=== PATIENT | male | born 1930 | race Caucasian/White ===

== ENCOUNTER 2018-08-19 10:58 | Emergency (ER) | payer MEDICARE ==
[2018-08-19] MEDS ORDERED: Albuterol/Ipratropium 3.0-0.5 MG/3 ML Neb Soln NEB ONE (14:19)
--- NOTE | 2018-08-19 14:22 | EDM.PDOC ---
ED HPI GENERAL MEDICAL PROBLEM - General Chief Complaint: General Stated Complaint: WEAK, ILL FOR 4 WEEKS Time Seen by Provider: 08/19/18 13:11 Source of Information: Reports: Patient, Family, Old Records, RN Notes Reviewed History Limitations: Reports: No Limitations - History of Present Illness INITIAL COMMENTS - FREE TEXT/NARRATIVE: 88-year-old gentleman presents emergency department today complaint of cough, he has been evaluated in the clinic 2 times for this persistent cough that has been ongoing for 1 month now. The reason he presents to the emergency department he states that he is sick of the cough and wants answers. He has been treated with 2 rounds of antibiotics azithromycin and doxycycline as well as a short course of steroids. He has no history of lung disease no tobacco exposure does have a past medical history of dyslipidemia and hypertension. He does produce sputum initially greenish yellow that now has resolved the cough is more dry, he has not had any weight gain or edema initial chest x-ray by radiology shows pleural effusion however notes from clinic reveal left lower lobe pneumonia, he denies any fevers states he has become weak over the last month - Related Data Allergies Allergy/AdvReac Type Severity Reaction Status Date / Time atorvastatin calcium Allergy Muscle Verified 05/05/13 06:58 [From Lipitor] Aches rosuvastatin calcium Allergy Muscle Verified 05/05/13 06:58 [From Crestor] Aches Home Meds: Home Meds Aspirin [Aspirin EC] 81 mg PO DAILY 05/04/13 [History] Glucosamine Sulf/Chondroitin A [Glucosamine-Chondroitin Cap] 1 each PO DAILY [History] Lisinopril 10 mg PO DAILY 05/04/13 [History] Metoprolol Tartrate [Lopressor] 50 mg PO DAILY 05/04/13 [History] Multivitamin [Multi Vitamin Daily] 1 each PO DAILY 05/04/13 [History] [place]-3 Fatty Acids [[place]-3] 1,000 mg PO DAILY 05/04/13 [History] Pravastatin [Pravachol] 20 mg PO DAILY 05/04/13 [History] Vit C/You & Celery Ex/Grp E [Tart You] 1 dose PO DAILY 05/04/13 [History] Codeine/guaiFENesin [guaiFENesin-Codeine Syrup] 10 ml PO TID PRN #180 cup [Rx] Past Medical History HEENT History: Reports: Impaired Vision Cardiovascular History: Reports: High Cholesterol, Hypertension - Past Surgical History Cardiovascular Surgical History: Reports: Other (See Below) Other Cardiovascular Surgeries/Procedures: Triple bypass 2010 GI Surgical History: Reports: Colonoscopy Social & Family History - Tobacco Use Smoking Status *Q: Never Smoker Second Hand Smoke Exposure: No - Caffeine Use Caffeine Use: Reports: Soda Other Caffeine Use: one can per day of soda - Recreational Drug Use Recreational Drug Use: No ED ROS GENERAL - Review of Systems Review Of Systems: See Below Constitutional: Reports: Weakness. Denies: Fever, Chills HEENT: Reports: No Symptoms Respiratory: Reports: Shortness of Breath, Cough (Sleeps on a chair at night because it reduces his cough) Cardiovascular: Reports: Dyspnea on Exertion GI/Abdominal: Reports: No Symptoms : Reports: No Symptoms Musculoskeletal: Reports: No Symptoms Skin: Reports: No Symptoms Neurological: Reports: No Symptoms ED EXAM, GENERAL - Physical Exam Exam: See Below Free Text/Narrative:: General: Male, not in any distress, alert and oriented x3 HEENT: head is atraumatic normocephalic, eyes pupils equal round reactive to light, sclera clear no conjunctivitis appreciated. Ears tympanic membranes clear and marie landmarks and light reflex are present bilaterally canals are clear. Nose no septal deviation, nares are clear, no blood present. Mouth mucosa is moist and pink no erythema or exudate noted in soft palate, tongue is midline uvula is midline, dentition is intact. Neck: Supple no thyromegaly no tracheal deviation. Nodes: Cervical nodes subclavicular nodes nontender no palpable lymphadenopathy noted. Lungs: Breath sounds are distant unappreciated any adventitious noises CV: Regular rate and rhythm S1 and S2 appreciated no murmurs rubs or gallops noted. Abdomen: Soft, nontender, no palpable masses or organomegaly appreciated, no distention no guarding bowel sounds are present, . Neuro: GCS 15 Skin: Warm and dry, intact Extremities: No lower extremity edema appreciated, Course - Vital Signs Last Recorded V/S: Last Vital Signs Temp 98.9 F 08/19/18 15:54 Pulse 100 08/19/18 15:54 Resp 16 08/19/18 15:54 BP 129/67 08/19/18 15:54 Pulse Ox 95 08/19/18 15:54 - Orders/Labs/Meds Orders: Active Orders 24 hr Category Date Time Status Peripheral IV Care [RC] . DIRECTED Care 08/19/18 15:08 Active RT Aerosol Therapy [RC] ASDIRECTED Care 08/19/18 14:19 Active Iopamidol [Isovue-370 (76%)] Med 08/19/18 15:15 Active 100 ml IV . DIRECTED Sodium Chloride 0.9% [Normal Saline] 1,000 ml Med 08/19/18 15:15 Active IV ASDIRECTED Sodium Chloride 0.9% [Saline Flush] Med 08/19/18 15:07 Active 10 ml FLUSH ASDIRECTED PRN Peripheral IV Insertion Adult [OM.PC] Urgent Oth 08/19/18 15:07 Ordered Medication Orders Sodium Chloride (Normal Saline) 1,000 mls @ 500 mls/hr IV ASDIRECTED KATIUSKA Last Admin: 08/19/18 15:54 Dose: 500 mls/hr Iopamidol (Isovue-370 (76%)) 100 ml IV . DIRECTED [facility] Last Admin: 08/19/18 15:48 Dose: 100 ml Sodium Chloride (Saline Flush) 10 ml FLUSH ASDIRECTED PRN PRN Reason: Keep Vein Open Labs: Laboratory Tests 08/19/18 08/19/18 08/19/18 Range/Units 14:31 14:31 14:31 WBC 6.3 (4.5-11.0) K/uL RBC 4.60 (4.30-5.90) M/uL Hgb 15.0 (12.0-15.0) g/dL Hct 45.6 (40.0-54.0) % MCV 99 H (80-98) fL MCH 33 H (27-31) pg MCHC 33 (32-36) % Plt Count 55 L (150-400) K/uL Neut % (Auto) 74 H (36-66) % Lymph % (Auto) 16 L (24-44) % [place] % (Auto) 9 H (2-6) % Eos % (Auto) 1 L (2-4) % Baso % (Auto) 1 (0-1) % D-Dimer, Quantitative 1390 H (0.0-400.0) ng/mL Sodium 135 L (140-148) mmol/L Potassium 4.4 (3.6-5.2) mmol/L Chloride 99 L (100-108) mmol/L Carbon Dioxide 27 (21-32) mmol/L Anion Gap 13.4 (5.0-14.0) mmol/L BUN 24 H (7-18) mg/dL Creatinine 1.2 (0.8-1.3) mg/dL Est Cr Clr Drug Dosing 41.31 mL/min Estimated GFR (MDRD) 57 L (>60) Glucose 125 H (74-106) mg/dL Calcium 9.6 (8.5-10.1) mg/dL Total Bilirubin 0.6 (0.2-1.0) mg/dL AST 44 H D (15-37) U/L ALT 51 D (12-78) U/L Alkaline Phosphatase 61 (46-116) U/L Troponin I < 0.017 (0.000-0.056) ng/mL NT-Pro-B Natriuret Pep (5-450) pg/mL Total Protein 6.8 (6.4-8.2) g/dL Albumin 2.8 L (3.4-5.0) g/dL Globulin 4.0 H (2.3-3.5) g/dL Albumin/Globulin Ratio 0.7 L (1.2-2.2) 08/19/18 Range/Units 14:31 WBC (4.5-11.0) K/uL RBC (4.30-5.90) M/uL Hgb (12.0-15.0) g/dL Hct (40.0-54.0) % MCV (80-98) fL MCH (27-31) pg MCHC (32-36) % Plt Count (150-400) K/uL Neut % (Auto) (36-66) % Lymph % (Auto) (24-44) % [place] % (Auto) (2-6) % Eos % (Auto) (2-4) % Baso % (Auto) (0-1) % D-Dimer, Quantitative (0.0-400.0) ng/mL Sodium (140-148) mmol/L Potassium (3.6-5.2) mmol/L Chloride (100-108) mmol/L Carbon Dioxide (21-32) mmol/L Anion Gap (5.0-14.0) mmol/L BUN (7-18) mg/dL Creatinine (0.8-1.3) mg/dL Est Cr Clr Drug Dosing mL/min Estimated GFR (MDRD) (>60) Glucose (74-106) mg/dL Calcium (8.5-10.1) mg/dL Total Bilirubin (0.2-1.0) mg/dL AST (15-37) U/L ALT (12-78) U/L Alkaline Phosphatase (46-116) U/L Troponin I (0.000-0.056) ng/mL NT-Pro-B Natriuret Pep 1197 H (5-450) pg/mL Total Protein (6.4-8.2) g/dL Albumin (3.4-5.0) g/dL Globulin (2.3-3.5) g/dL Albumin/Globulin Ratio (1.2-2.2) Meds: Medications Generic Name Dose Route Start Last Admin Trade Name Freq PRN Reason Stop Dose Admin Sodium Chloride 1,000 mls @ 500 mls/hr 08/19/18 15:15 08/19/18 15:54 Normal Saline IV 500 mls/hr ASDIRECTED KATIUSKA Administration Iopamidol 100 ml 08/19/18 15:15 08/19/18 15:48 Isovue-370 (76%) IV 100 ml . DIRECTED KATIUSKA Administration Sodium Chloride 10 ml 08/19/18 15:07 Saline Flush FLUSH ASDIRECTED PRN Keep Vein Open Discontinued Medications Generic Name Dose Route Start Last Admin Trade Name Freq PRN Reason Stop Dose Admin Albuterol/Ipratropium 3 ml 08/19/18 14:19 08/19/18 14:30 Duoneb 3.0-0.5 Mg/3 Ml NEB 08/19/18 14:20 3 ml ONETIME ONE Administration Sodium Chloride 100 mls @ 3 mls/sec 08/19/18 15:11 08/19/18 15:48 Normal Saline IV 08/19/18 15:12 4 mls/sec ASDIRECTED ONE Administration Sodium Chloride 10 ml 08/19/18 15:11 08/19/18 15:47 Saline Flush FLUSH 10 ml . DIRECTED PRN Administration [id number] EXAM Departure - Departure Time of Disposition: 17:24 Disposition: Home, Self-Care 01 Condition: Fair Clinical Impression: Cough, Thrombocytopenia - Discharge Information Prescriptions: Codeine/guaiFENesin [guaiFENesin-Codeine Syrup] 10 ml PO TID PRN #180 cup PRN Reason: Cough Instructions: Cough, Adult, [id number] Referrals: Justin Baker MD [Primary Care Provider] - Forms: ED Department Discharge Additional Instructions: Use a Robitussin-AC as needed help suppress cough, keep your follow-up appointment with her primary care provider in medications have been faxed to [facility] - My Orders Last 24 Hours: My Active Orders 08/19/18 14:19 RT Aerosol Therapy [RC] ASDIRECTED 08/19/18 15:07 Sodium Chloride 0.9% [Saline Flush] 10 ml FLUSH ASDIRECTED PRN Peripheral IV Insertion Adult [OM.PC] Urgent 08/19/18 15:08 Peripheral IV Care [RC] . DIRECTED 08/19/18 15:15 Iopamidol [Isovue-370 (76%)] 100 ml IV . DIRECTED Sodium Chloride 0.9% [Normal Saline] 1,000 ml IV ASDIRECTED - Assessment/Plan Last 24 Hours: My Active Orders 08/19/18 14:19 RT Aerosol Therapy [RC] ASDIRECTED 08/19/18 15:07 Sodium Chloride 0.9% [Saline Flush] 10 ml FLUSH ASDIRECTED PRN Peripheral IV Insertion Adult [OM.PC] Urgent 08/19/18 15:08 Peripheral IV Care [RC] . DIRECTED 08/19/18 15:15 Iopamidol [Isovue-370 (76%)] 100 ml IV . DIRECTED Sodium Chloride 0.9% [Normal Saline] 1,000 ml IV ASDIRECTED Plan: Assessment Acuity = acute Site and laterality = cough Etiology = suspicious for postinfectious Manifestations = none Location of injury = Home Lab values = WBC within normal limits platelets low at 55 consistent term cytopenia d-dimer elevated 1390 uncertain significance troponin was negative BNP elevated 1197, chest x-ray shows no congestive heart failure no pneumonia, CT scan of the chest reveals no PE however there is bronchial wall thickening consistent with a bronchitis type pattern Plan I did review lab work and CT scan results with him he felt some relief with the DuoNeb provided prescription written for Robitussin-AC 10 mL by mouth 3 times a day when necessary 180 mL bottle, peripheral smear was also ordered for the thrombocytopenia he does have follow-up with his primary care provider in 6 days This note was dictated using [employer] voice recognition software please call with any questions on syntax or grammar.
--- NOTE | 2018-08-19 15:03 | CRLCR ---
INDICATION: Cough TECHNIQUE: Chest 2 views. COMPARISON: 04/11/2010 FINDINGS: Cardiovascular and mediastinum: Heart size and vasculature are normal in caliber and appearance. Mediastinum is within normal limits. Sternotomy wires noted. Lungs and pleural spaces: Lungs are clear. No sign of infiltrate or mass. No sign of pleural effusion. No pneumothorax. Bones and soft tissues: No significant findings. IMPRESSION: Unremarkable chest. Dictated by Justin Wheeler MD @ 08/19/2018 3:02:47 PM Dictated by: Justin Wheeler MD @ 08/19/2018 15:02:54 (Electronically Signed)
[2018-08-19] MEDS ORDERED: Sodium Chloride 0.9% 10 ML Syringe FLUSH PRN ×2 (15:07→15:11)
[2018-08-19] MEDS ORDERED: Sodium Chloride 0.9% 100 ML IV ONE (15:11)
[2018-08-19] MEDS ORDERED: Iopamidol 755 Mg/ML 100 ML Bottle IV SCH (15:15)
[2018-08-19] MEDS ORDERED: Sodium Chloride 0.9% 1,000 ML IV SCH (15:15)
--- NOTE | 2018-08-19 17:01 | CRLCT ---
INDICATION: Cough, elevated D-dimer. TECHNIQUE: CT chest PE was acquired with 100 cc Isovue 370 intravenous contrast. COMPARISON: None. FINDINGS: Heart and vasculature: Contrast opacification of the pulmonary arterial tree is adequate. No sign of pulmonary embolism. Status post coronary bypass grafting with mild fusiform enlargement of the thoracic aorta. Ascending aorta measures up to 4.8 centimeters. This tapers to 3.2 centimeters in the descending thoracic aorta at the pulmonary artery level. No pericardial effusion. Coronary atherosclerosis. Lungs and pleural: No pleural effusion or pneumothorax. Mild bronchial wall thickening with slight thickening of the bronchovascular bundles. Slight soft tissue along the bronchovascular bundles which may represent more prominent bronchial wall thickening, minimal lymph nodes or slight airspace disease. Lymph nodes/mediastinum: Subcentimeter mediastinal and hilar lymph nodes. Chest wall: Mild bilateral gynecomastia. Upper abdomen: Normal. Bones: Status post median sternotomy. IMPRESSION: 1. No evidence of pulmonary embolus. 2. Bilateral diffuse bronchial wall thickening with slight soft tissue along the bronchovascular bundles, possibly early airspace disease or small lymph nodes. Appearance suggests a prominent bronchitis versus very early bronchopneumonia. 3. Mild fusiform enlargement ascending thoracic aorta measuring up to 4.8 centimeters. Please note that all CT scans at this facility use dose modulation, iterative reconstruction, and/or weight-based dosing when appropriate to reduce radiation dose to as low as reasonably achievable. Dictated by Antonio Michaels MD @ Aug 19 2018 4:51PM Signed by Dr. Antonio Michaels @ Aug 19 2018 4:59PM
[2018-08-22 18:06] LABS: BASOS 0 % (Not Estab.); EOS 0 % (Not Estab.); HEMATOCRIT 42.8 % (37.5-51.0); HEMATOLOGY COMMENTS: Note: (.); HEMOGLOBIN 15.3 g/dL (13.0-17.7); LYMPHS 34 % (Not Estab.); LYMPHS (ABSOLUTE) 1.9 x10E3/uL (0.7-3.1); MCH 34.1 pg (26.6-33.0); MCHC 35.7 g/dL (31.5-35.7); MCV 95 fL (79-97); MONOCYTES 16 % (Not Estab.); MONOCYTES(ABSOLUTE) 0.9 x10E3/uL (0.1-0.9); NEUTROPHILS 50 % (Not Estab.); NEUTROPHILS (ABSOLUTE) 2.8 x10E3/uL (1.4-7.0); PATHOLOGIST Note: (.); PLTS Note: (.); RBC 4.49 x10E6/uL (4.14-5.80); RBC Note: (.); RDW 12.5 % (12.3-15.4); WBC 5.6 x10E3/uL (3.4-10.8); WBC Note: (.)
== END 2018-08-19 17:48 | disposition home or self-care (01) ==
LOC: JP.ED 10:58
DX: D69.6 Thrombocytopenia, unspecified (principal); R05 Cough
CPT/HCPCS: 36415; 71046; 71275; 80053; 83880; 84484; 85025; 85379; 94640; 96360; 96361; 99284; J7030; Q9967; 85060; J7620-GY

== ENCOUNTER 2019-01-09 08:56 | Emergency (ER) | payer MEDICARE ==
--- NOTE | 2019-01-09 09:55 | EDM.PDOC ---
ED HPI GENERAL MEDICAL PROBLEM - General Chief Complaint: Abdominal Pain Stated Complaint: ABD PAIN, COUGHING, SOB Time Seen by Provider: 01/09/19 09:40 Source of Information: Reports: Patient, Family History Limitations: Reports: No Limitations - History of Present Illness INITIAL COMMENTS - FREE TEXT/NARRATIVE: 88-year-old male without any previous abdominal surgical history presents with lower abdominal pain for 3 days. No fevers or chills, no nausea or vomiting but he does have some decreased appetite. No significant change in bowel movements. No urinary symptoms or radiation to the back. His lower abdomen is becoming more painful with movement. Onset: Gradual Duration: Day(s): (3 days) Location: Reports: Abdomen Worsens with: Reports: Movement Associated Symptoms: Reports: Other (Decreased appetite). Denies: Chest Pain, Fever/Chills, Malaise, Nausea/Vomiting, Shortness of Breath Lower Abdominal Pain Score (Numeric/FACES): 7 - Related Data Allergies Allergy/AdvReac Type Severity Reaction Status Date / Time atorvastatin calcium Allergy Muscle Verified 05/05/13 06:58 [From Lipitor] Aches rosuvastatin calcium Allergy Muscle Verified 05/05/13 06:58 [From Crestor] Aches Home Meds: Home Meds Aspirin [Aspirin EC] 81 mg PO DAILY 05/04/13 [History] C/Sourcherry/Celery/Grape Seed [Tart You] 1 dose PO DAILY 05/04/13 [History] Glucosamine Sulf/Chondroitin A [Glucosamine-Chondroitin Cap] 1 each PO DAILY [History] Lisinopril 10 mg PO DAILY 05/04/13 [History] Metoprolol Tartrate [Lopressor] 50 mg PO DAILY 05/04/13 [History] Multivitamin [Multi Vitamin Daily] 1 each PO DAILY 05/04/13 [History] [place]-3 Fatty Acids [[place]-3] 1,000 mg PO DAILY 05/04/13 [History] Pravastatin [Pravachol] 20 mg PO DAILY 05/04/13 [History] Codeine/guaiFENesin [guaiFENesin-Codeine Syrup] 10 ml PO TID PRN #180 cup [Rx] Past Medical History HEENT History: Reports: Impaired Vision Cardiovascular History: Reports: High Cholesterol, Hypertension - Past Surgical History Cardiovascular Surgical History: Reports: Other (See Below) Other Cardiovascular Surgeries/Procedures: Triple bypass 2009 GI Surgical History: Reports: Colonoscopy Social & Family History - Tobacco Use Smoking Status *Q: Never Smoker - Caffeine Use Caffeine Use: Reports: Soda Other Caffeine Use: one can per day of soda - Recreational Drug Use Recreational Drug Use: No ED ROS GENERAL - Review of Systems Review Of Systems: See Below Constitutional: Reports: Decreased Appetite. Denies: Fever, Chills HEENT: Reports: No Symptoms Respiratory: Denies: Shortness of Breath Cardiovascular: Reports: Other (Some increased peripheral edema of his lower extremities due to inactivity the last several weeks). Denies: Chest Pain GI/Abdominal: Reports: Abdominal Pain. Denies: Constipation, Diarrhea, Nausea, Vomiting : Reports: No Symptoms Skin: Reports: No Symptoms Neurological: Reports: No Symptoms ED EXAM, GI/ABD - Physical Exam Exam: See Below Exam Limited By: No Limitations General Appearance: Alert, No Apparent Distress Eyes: Bilateral: Normal Appearance (No jaundice) Head: Atraumatic Respiratory/Chest: No Respiratory Distress, Lungs Clear Cardiovascular: Regular Rate, Rhythm GI/Abdominal Exam: Soft, Tender (Very tender across the lower abdomen with peritoneal signs, mild guarding and rebound tenderness) Course - Vital Signs Last Recorded V/S: Last Vital Signs Temp 97.0 F 01/09/19 09:29 Pulse 102 H 01/09/19 09:29 Resp 20 01/09/19 09:29 BP 171/99 H 01/09/19 09:29 Pulse Ox 93 L 01/09/19 09:29 - Orders/Labs/Meds Labs: Laboratory Tests 01/09/19 01/09/19 01/09/19 Range/Units 09:51 10:04 10:23 WBC 11.0 (4.5-11.0) K/uL RBC 4.81 (4.30-5.90) M/uL Hgb 15.2 H (12.0-15.0) g/dL Hct 46.0 (40.0-54.0) % MCV 96 (80-98) fL MCH 32 H (27-31) pg MCHC 33 (32-36) % Plt Count 127 L (150-400) K/uL Neut % (Auto) 89 H (36-66) % Lymph % (Auto) 6 L (24-44) % [place] % (Auto) 5 (2-6) % Eos % (Auto) 0 L (2-4) % Baso % (Auto) 0 (0-1) % Sodium 139 L (140-148) mmol/L Potassium 4.4 (3.6-5.2) mmol/L Chloride 104 (100-108) mmol/L Carbon Dioxide 26 (21-32) mmol/L Anion Gap 13.4 (5.0-14.0) mmol/L BUN 21 H (7-18) mg/dL Creatinine 1.1 (0.8-1.3) mg/dL Est Cr Clr Drug Dosing 46.64 mL/min Estimated GFR (MDRD) > 60 (>60) Glucose 149 H (74-106) mg/dL Calcium 9.3 (8.5-10.1) mg/dL Total Bilirubin 1.0 D (0.2-1.0) mg/dL AST 18 (15-37) U/L ALT 23 (12-78) U/L Alkaline Phosphatase 59 (46-116) U/L Total Protein 6.4 (6.4-8.2) g/dL Albumin 3.4 (3.4-5.0) g/dL Globulin 3.0 (2.3-3.5) g/dL Albumin/Globulin Ratio 1.1 L (1.2-2.2) Urine Color Yellow (YELLOW) Urine Appearance Clear (CLEAR) Urine pH 6.5 (5.0-8.0) Ur Specific [place] 1.020 (1.008-1.030) Urine Protein Negative (NEGATIVE) mg/dL Urine Glucose (UA) Negative (NEGATIVE) mg/dL Urine Ketones Negative (NEGATIVE) mg/dL Urine Occult Blood Negative (NEGATIVE) Urine Nitrite Negative (NEGATIVE) Urine Bilirubin Negative (NEGATIVE) Urine Urobilinogen 0.2 (0.2-1.0) EU/dL Ur Leukocyte Esterase Negative (NEGATIVE) Urine RBC Not seen (0-5) Urine WBC Not seen (0-5) Ur Epithelial Cells Not seen Amorphous Sediment Rare Urine Bacteria Not seen Urine Mucus Not seen - Re-Assessments/Exams Free Text/Narrative Re-Assessment/Exam: 01/09/19 09:54 CBC, CMP and UA were obtained and the patient will have a CAT scan of the abdomen and pelvis without contrast. He declined any pain medication at this time. 01/09/19 10:47 Labs and UA were normal, CT scan however showed some nonspecific retroperitoneal stranding. Appendix is normal. Discussed this with surgery, early diverticulitis is the most likely source. Patient wants to avoid hospitalization if possible, so will be placed on Augmentin 875 mg twice a day for the next 7 days. He will return if worsening. Also consider rechecking next week if not improving satisfactorily. Departure - Departure Time of Disposition: 10:59 Disposition: Home, Self-Care 01 Clinical Impression: Abdominal pain Qualifiers: Abdominal location: lower abdomen, unspecified Qualified Code(s): R10.30 - Lower abdominal pain, unspecified - Discharge Information Instructions: Diverticulitis, [id number] Referrals: Justin Baker MD [Primary Care Provider] - Forms: ED Department Discharge Care Plan Goals: Take one pill of antibiotic with food twice daily for at least 7 days. Stay hydrated with water and get fiber in your diet to keep stools soft during treatment. Recheck next week if not improving satisfactorily, or return sooner if worsening despite treatment such as fever or increased pain, or unable to take the medication due to vomiting. A dose of ibuprofen or naproxen a few times a day will help with pain.
--- NOTE | 2019-01-09 10:28 | CRLCT ---
INDICATION: Lower abdominal pain for the last 3 days. COMPARISON: None. TECHNIQUE: CT abdomen and pelvis without intravenous or oral contrast; coronal and sagittal reformats. FINDINGS: Small bilateral pleural effusion more on the left. Associated compression atelectasis lower lobe left lung. No discrete abnormal intra pulmonary nodular densities are identified. Normal size cardiac silhouette without any evidence of pericardial effusion. Status post median sternotomy. No focal hepatic or splenic pathology . No pancreatic pathology. Gallbladder is unremarkable. Calcification identified in segment 5 of the liver; rule out old granuloma. No adrenal pathology. No kidney stones or obstructive uropathy .no retroperitoneal lymphadenopathy. Normal appendix. haziness identified involving the retroperitoneal fat in the lower abdomen bilaterally; the exact nature and clinical significance unclear. IMPRESSION: 1. No kidney stones or obstructive uropathy. 2. Normal appendix. 3. Bilateral pleural effusion more on the left. 4. Nonspecific fat stranding retroperitoneum bilateral lower abdomen; nature and clinical significance unclear. Please note that all CT scans at this facility use dose modulation, iterative reconstruction, and/or weight-based dosing when appropriate to reduce radiation dose to as low as reasonably achievable. Dictated by Dalia Strickland MD @ Jan 09 2019 10:21AM Signed by Dr. Dalia Strickland @ Jan 09 2019 10:26AM
== END 2019-01-09 11:05 | disposition home or self-care (01) ==
LOC: JP.ED 08:56
DX: R10.30 Lower abdominal pain, unspecified (principal); E78.00 Pure hypercholesterolemia, unspecified; I10 Essential (primary) hypertension; Z88.8 Allergy status to other drugs, medicaments and biological substances; Z79.82 Long term (current) use of aspirin; Z79.899 Other long term (current) drug therapy
CPT/HCPCS: 36415; 74176; 80053; 81001; 85025; 99283; 99284-25